=== PATIENT | male | born 1955 | race Caucasian/White ===

== ENCOUNTER 2017-06-10 08:37 | Day surgery (SDC) | payer BC ==
[~2017-06-10 08:37] MED LIST: Buffered Lidocaine 0.9% SYRIN* 5 ML/SYR SYRINGE INTRADERM ONE; Famotidine IV* 10 MG/ML 2 ML (20 mg) IV ONE; Morphine INJ* 2 MG/ML 1 ML CARPUJECT IV PRN; Nalbuphine* 20 MG/ML 1 ML VIAL IV PRN; Scopolamine 1.5 mg* PATCH TRANSDERM PRN; fentaNYL* 50 MCG/ML 2 ML VIAL (100 MCG VIAL) IV PRN; oxyCODONE/Acetamin 5/325 MG* TAB PO PRN
[2017-06-10] MEDS ORDERED: Famotidine IV* 10 MG/ML 2 ML (20 mg) ONE (08:46)
[2017-06-10] MEDS ORDERED: Buffered Lidocaine 0.9% SYRIN* 5 ML/SYR SYRINGE ONE (08:47)
[2017-06-10] MEDS ORDERED: Oxymetazoline 0.05% NASAL SPR* 15 ML BTL ONE (10:19)
[2017-06-10] MEDS ORDERED: Lidocaine 2% EPI 1:200000 MPF* 20 ML VIAL ONE (10:20)
[2017-06-10] MEDS ORDERED: KETAMINE HCL* 50 MG/ML 10 ML VIAL ONE (10:43)
[2017-06-10] MEDS ORDERED: fentaNYL* 50 MCG/ML 2 ML VIAL (100 MCG VIAL) ONE (10:43)
[2017-06-10] MEDS ORDERED: Midazolam* 1 MG/ML 5 ML VIAL (5 MG) ONE (10:44)
[2017-06-10] MEDS ORDERED: Propofol* 10 MG/ML 20 ML BTL IV PUSH ONE (10:56)
[2017-06-10] MEDS ORDERED: Lidocaine 2% PF * 5 ML VIAL ONE (10:56)
[2017-06-10] MEDS ORDERED: Dexamethasone IV* 4 MG/ML 1 ML (4 MG) ONE (10:56)
[2017-06-10] MEDS ORDERED: Ondansetron INJ* 2 MG/ML VIAL ONE (10:56)
[2017-06-10] MEDS ORDERED: Phenylephrine IV* 40 MCG/ML 10 ML SYRINGE ONE (11:11)
[2017-06-10 12:20] VITALS: BP 147/104
--- NOTE | 2017-06-11 01:05 | OP ---
DATE OF OPERATION: 06/10/17 - [facility] DATE OF : 51 SURGEON: Dickson Finley MD ANESTHESIOLOGIST: Colton Griggs MD ANESTHESIA: General PRE-OP DIAGNOSES: Deviated nasal septum and hypertrophied turbinates. POST-OP DIAGNOSES: Deviated nasal septum and hypertrophied turbinates. OPERATIVE PROCEDURE: Septoplasty and submucosal resection of the inferior turbinate. BRIEF HISTORY: This 61-year-old gentleman with a longstanding history of left- sided nasal dyspnea, worsening symptoms, elected for surgical management. DESCRIPTION OF PROCEDURE: The patient was taken to the operating room, general anesthesia was given, the patient was intubated with LMA. Nose was decongested with Afrin placed pledgets. 2% lidocaine with epinephrine was infiltrated to the mucosa of the septum on both sides and the inferior turbinates. Left hemitransfixion incision created. Mucoperichondrial flap was elevated. Quadrangular cartilage was disarticulated along the vomer ethmoidal complex posteriorly. Large posterior spur was removed. Portion of the macular crest was removed. Quadrangular cartilage was placed in the midline, multiple sutures of chromic were used to place the mattress type style to keep it in place. Subsequently, a Leonardo splint was applied and secured with 2-0 nylon. We turned our attention to the inferior turbinate. A small incision was made in the inferior turbinate mucosa and the submucosal resection. Soft tissue and bone was resected. Subsequently, cautery was carried out at hemostasis. The patient was awakened, sent to recovery room in stable condition. Instrument and sponge count correct. Blood loss minimal. [id number]/[facility] #: [id number] MTDD
[2017-06-13] MEDS ORDERED: Scopolomine PATCH Remove* 1 NOTE MISC PATCH OFF ONE (05:58)
== END 2017-06-10 12:35 | disposition home or self-care (01) ==
LOC: OR 08:37
PROVIDERS: ATTEND Otolaryngology
DX: J34.2 Deviated nasal septum (principal); J34.3 Hypertrophy of nasal turbinates
CPT/HCPCS: A9270-GY; J1100; J2250; J2405; J2704; J3010

== ENCOUNTER 2017-12-18 21:57 | Emergency (ER) | payer BC ==
--- NOTE | 2017-12-18 22:36 | ED ---
Lower Extremity - HPI Summary HPI Summary: Complains of continued pain and swelling in left lower extremity after baseball hit it 2 weeks ago. Sent to ED by CC for further evaluation. Denies loss of sensation or function in left lower extremity, history of blood clots, CP, SOB, fever. No anti-coag. Medical history is none. - History of Current Complaint Chief Complaint: EDExtremityLower Stated Complaint: IMAGING Time Seen by Provider: 12/18/17 22:24 Hx Obtained From: Patient Mechanism Of Injury: Blunt Trauma Onset of Pain: Immediate Onset/Duration: Weeks Severity Initially: Moderate Severity Currently: Moderate Pain Intensity: 7 Pain Scale Used: 0-10 Numeric Timing: Constant Character Of Pain: Aching, Stiffness Associated Signs And Symptoms: Positive: Swelling, Bruising Aggravating Factor(s): Standing, Weight Bearing Alleviating Factor(s): Rest, Elevation Able to Bear Weight: Yes - Risk Factors Gout Risk Factors: Age Over 40, Male DVT Risk Factors: Negative Septic Arthritis Risk Factor: Negative - Allergies/Home Medications Allergies/Adverse Reactions: Allergies Allergy/AdvReac Type Severity Reaction Status Date / Time No Known Allergies Allergy Verified 12/18/17 22:10 PMH/Surg Hx/FS Hx/Imm Hx Endocrine/Hematology History: Denies: Hx Diabetes, Hx Thyroid Disease Cardiovascular History: Denies: Hx Hypertension, Hx Pacemaker/ICD Respiratory History: Denies: Hx Asthma, Hx Chronic Obstructive Pulmonary Disease (COPD) GI History: Reports: Hx Gastroesophageal Reflux Disease - causes chest pain- no meds, Other GI Disorders - see above Denies: Hx Ulcer History: Reports: Hx Kidney Stones - 2 years ago - no more issues Denies: Hx Renal Disease Musculoskeletal History: Denies: Other Musculoskeletal History Sensory History: Reports: Hx Contacts or Glasses - reading Denies: Hx Hearing Aid Opthamlomology History: Reports: Hx Contacts or Glasses - reading Neurological History: Reports: Hx Migraine - rare Psychiatric History: Denies: Hx Panic Disorder - Surgical History Surgery Procedure, Year, and Place: ING. HERNIA REPAIR [facility]. 2000 right total knee - REPLACED [facility]. 2003 right rotator cuff repair [facility]. 2011 BILATERAL MAXILLARY SINUSES [facility]. 09/2014 LEFT KIDNEY STONE [facility]. 2014 Lt ROTATOR CUFF REPAIR. CORNEA TRANSPLANTS Hx Anesthesia Reactions: No Infectious Disease History: No Infectious Disease History: Denies: Hx Clostridium Difficile, Hx Hepatitis, Hx Human Immunodeficiency Virus (HIV), Hx of Known/Suspected MRSA, Hx Shingles, Hx Tuberculosis, Traveled Outside the [place] in Last 30 Days - Social History Alcohol Use: Rare Alcohol Amount: MAYBE 1 DRINK/MONTH Substance Use Type: Reports: None Smoking Status (MU): Never Smoked Tobacco Have You Smoked in the Last Year: No Review of Systems Constitutional: Negative Eyes: Negative ENT: Negative Cardiovascular: Negative Respiratory: Negative Gastrointestinal: Negative Genitourinary: Negative Musculoskeletal: Negative Skin: Negative Neurological: Negative Psychological: Normal All Other Systems Reviewed And Are Negative: Yes Physical Exam - Summary Physical Exam Summary: Tenderness to palpation of left calf. Mild swelling of left lower extremity and ankle versus right lower extremity. No erythema, extra warmth to left lower extremity. Full range of motion of left ankle, no significant increase in pain with plantar flexion or dorsiflexion. No significant dermal tightness to left lower extremity. Full range of motion of left knee. Physical exam of left knee unremarkable. No indication of paralysis. Pulses intact. Triage Information Reviewed: Yes Vital Signs On Initial Exam: Initial Vitals Temp Pulse Resp BP Pulse Ox 97.8 F 72 16 143/92 97 12/18/17 22:05 12/18/17 22:05 12/18/17 22:05 12/18/17 22:05 12/18/17 22:05 Vital Signs Reviewed: Yes Appearance: Positive: Well-Appearing Skin: Positive: Warm Head/Face: Positive: Normal Head/Face Inspection Eyes: Positive: Normal Neck: Positive: Supple Respiratory/Lung Sounds: Positive: Clear to Auscultation Cardiovascular: Positive: Normal Abdomen Description: Positive: Nontender Musculoskeletal: Positive: Normal Neurological: Positive: Normal Psychiatric: Positive: Normal AVPU Assessment: Alert - [place] Coma Scale Best Eye Response: 4 - Spontaneous Best Motor Response: 6 - Obeys Commands Best Verbal Response: 5 - Oriented Coma Scale Total: 15 Diagnostics - Vital Signs Vital Signs Temp Pulse Resp BP Pulse Ox 12/18/17 22:05 97.8 F 72 16 143/92 97 - Laboratory Lab Statement: Any lab studies that have been ordered have been reviewed, and results considered in the medical decision making process. - Ultrasound No standard instances Ultrasound Interpretation: No Acute Changes - left lower ext Ultrasound Interpretation Completed By: Radiologist Lower Extremity Course/Dx - Diagnoses Provider Diagnoses: Pain of left lower extremity Discharge - Sign-Out/Discharge Documenting (check all that apply): Discharge/Admit/Transfer - Discharge Plan Condition: Stable Disposition: HOME Patient Education Materials: Leg Pain (ED) Referrals: Debi Chauhan MD [Primary Care Provider] - - Billing Disposition and Condition Condition: STABLE Disposition: HOME
[2017-12-19 01:58] VITALS: BP 142/88
--- NOTE | 2017-12-19 08:31 | RAD ---
INDICATION: LEFT lower chimney pain and edema following injury. COMPARISON: No relevant prior exams available on the [facility] PACS for comparison. TECHNIQUE: Joseph scale, color Doppler, and spectral analysis of the deep veins of the LEFT lower extremity. Vessel compression, phasicity, and augmentation assessed. REPORT: The LEFT common femoral, great saphenous, profunda femoral, femoral, popliteal, solitary visualized peroneal peroneal, and posterior tibial veins are patent. Patency of the RIGHT common femoral vein documented. IMPRESSION: 1. No evidence for LEFT lower extremity deep venous thrombosis. 2. Mild limitation in assessment due to nonvisualization of the second of the paired peroneal veins of the lower leg.
== END 2017-12-19 01:57 | disposition home or self-care (01) ==
LOC: ED 21:57
DX: M79.662 Pain in left lower leg (principal); K21.9 Gastro-esophageal reflux disease without esophagitis; Z87.442 Personal history of urinary calculi; Z96.651 Presence of right artificial knee joint
CPT/HCPCS: 99282